=== PATIENT | male | born 1970 | race Caucasian/White ===

== ENCOUNTER 2017-05-27 13:43 | Emergency (ER) | payer OTHER ==
[2017-05-27 13:48] VITALS: BP 139/87; PULSE 90; TEMP 98; BMI 279.0
--- NOTE | 2017-05-27 14:40 | PDOC ---
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 Past History - Past Medical History Allergies/Adverse Reactions: Allergies Allergy/AdvReac Type Severity Reaction Status Date / Time No Known Allergies Allergy Verified 05/27/17 13:47 Home Medications: Ambulatory Orders Atorvastatin Ca [Lipitor] 10 mg PO HS 05/09/15 Pantoprazole Sodium [Protonix] 40 mg PO DAILY 05/09/15 Oxycodone HCl/Acetaminophen [Percocet 5-325 mg Tablet] 1 tab PO Q4H #20 tablet MDD 6 05/27/17 GI Disorders: Yes (GERD) - Suicide/Smoking/Psychosocial Hx Smoking History: Never smoked Have you smoked in the past 12 months: No Information on smoking cessation initiated: No Hx Alcohol Use: No Drug/Substance Use Hx: No Substance Use Type: None Review of Systems - Review of Systems Constitutional: No: Symptoms Reported Musculoskeletal: Yes: Joint Pain, Joint Swelling Integumentary: Yes: Bruising, Erythema (left second distal toe) Neurological: No: Symptoms reported Hematologic/Lymphatic: No: Symptoms Reported All Other Systems: Reviewed and Negative *Physical Exam - Vital Signs Last Vital Signs Temp Pulse Resp BP Pulse Ox 98.0 F 90 18 139/87 100 05/27/17 13:45 05/27/17 13:45 05/27/17 13:45 05/27/17 13:45 05/27/17 13:45 - Physical Exam General Appearance: Yes: Appropriately Dressed. No: Apparent Distress Extremity: positive: Swelling (distal left second digit), Erythema Integumentary: positive: Erythema, Swelling. negative: Ecchymosis, Bruising Neurologic: positive: Alert, Normal Mood/Affect ED Treatment Course - RADIOLOGY Radiology Studies Ordered: Category Date Time Status FOOT-LEFT [RAD] Stat Radiology 05/27/17 14:18 Taken Medical Decision Making - Medical Decision Making 05/27/17 16:13 A/P: Patient here for injury to distal left second toe. Patient sent for x-ray Nondisplaced fracture of the tuft of the distal second phalanx John tape applied and surgical shoe, patient to follow-up with podiatry, orthopedics and occupational medicine to be cleared to return to work Percocet for pain I discussed the physical exam findings, ancillary test results and final diagnoses with the patient. I answered all of the patient's questions. The patient was satisfied with the care received and felt comfortable with the discharge plan and treatment plan. The patient will call to arrange follow-up and will return to the Emergency Department with any new, persistent or worsening symptoms. *DC/Admit/Observation/Transfer Diagnosis at time of Disposition: Toe fracture Qualifiers: Encounter type: initial encounter Toe: unspecified toe Fracture type: closed Fracture alignment: nondisplaced Laterality: left Qualified Code(s): S92.912A - Unspecified fracture of left toe(s), initial encounter for closed fracture - Discharge Dispostion Disposition: HOME Condition at time of disposition: Good Admit: No - Prescriptions Prescriptions: Oxycodone HCl/Acetaminophen [Percocet 5-325 mg Tablet] 1 tab PO Q4H #20 tablet MDD 6 - Referrals Referrals: Frank Duvall MD [Primary Care Provider] - Issac Leger MD [Staff Physician] - - Patient Instructions Additional Instructions: 1. Please return to the emergency department with any redness, swelling, increased pain, or any other concerns. 2. Keep splint on. 3. Please follow up in the office of Dr. Leger within a week. 4. Ice and elevate when at rest. 6. Motrin for pain Must be cleared by occupational medicine in order to return to work
== END 2017-05-27 15:29 | disposition home or self-care (01) ==
LOC: JERFT 13:43
PROC: 2W3RX1Z Immobilization of Left Lower Leg using Splint (ICD-10-PCS; principal; 2017-05-27)
DX: R05 Cough (principal); S92.912A Unspecified fracture of left toe(s), initial encounter for closed fracture; W23.1XXA Caught, crushed, jammed, or pinched between stationary objects, initial encounter; Y93.89 Activity, other specified; Y92.9 Unspecified place or not applicable; Y99.0 Civilian activity done for income or pay
CPT/HCPCS: 73630-TC-LT; 99281-25

== ENCOUNTER 2024-05-27 13:55 | Day surgery (SDC) | payer BC, OTHER ==
[2024-05-27] MEDS: PANTOPRAZOLE SODIUM 40 MG VIAL IVPUSH ONE (15:34)
[2024-05-27] MEDS ORDERED: PANTOPRAZOLE SODIUM 40 MG VIAL ONE (15:34)
[2024-05-27 15:37] LABS: BASO % 0.7 % (0-2.0); EOS % 1.2 % (0-4.5); HEMATOCRIT 45.2 % (35.4-49); HEMOGLOBIN 15.2 GM/dL (11.7-16.9); LYMPH % 13.7 % (8-40); MCH 28.4 pg (25.7-33.7); MCHC 33.7 g/dl (32.0-35.9); MEAN CELL VOLUME 84.1 fl (80-96); MEAN PLT VOLUME 7.2 fl (7.5-11.1); MONO % 7.7 % (3.8-10.2); NEUT % 76.7 % (42.8-82.8); PLATELET COUNT 344 10^3/uL (134-434); RBC 5.37 M/mm3 (4.00-5.60); RDW 13.8 % (11.9-15.9); WHITE BLOOD COUNT 7.8 K/mm3 (4.0-10.0)
[2024-05-27 15:43] LABS: INR 1.03 (0.83-1.09); PROTHROMBIN TIME (PATIENT) 11.8 SEC (9.7-13.0)
[2024-05-27 16:04] LABS: BLOOD UREA NITROGEN 17.6 mg/dL (7-18); CALCIUM 9.6 mg/dL (8.5-10.1)
[2024-05-27 16:05] LABS: ALBUMIN 4.3 g/dl (3.4-5.0)
[2024-05-27 16:08] LABS: CREATININE 1.2 mg/dL (0.55-1.3)
[2024-05-27 16:10] LABS: BILIRUBIN,TOTAL 0.4 mg/dL (0.2-1); TOT PROT 8.2 g/dl (6.4-8.2)
[2024-05-27] MEDS ORDERED: ONDANSETRON 4 MG/2 ML VIAL IVPUSH PRN (16:42)
[2024-05-27 16:59] LABS: HIV INTERPRETATION NEGATIVE (NEGATIVE)
[2024-05-27 19:09] VITALS: BMI 31.0
[2024-05-27] MEDS ORDERED: PANTOPRAZOLE 40 MG TABLET PO SCH (22:00)
[2024-05-27 22:51] VITALS: RESP 18
[2024-05-27] MEDS: LACTATED RINGERS SOLUTION 1,000 ML IV SCH (23:16)
[2024-05-28 06:18] VITALS: TEMP 98.2
[2024-05-28] MEDS: PANTOPRAZOLE 40 MG TABLET PO SCH (10:05)
[2024-05-28 11:20] VITALS: BP 119/79; PULSE 86
== END 2024-05-28 12:04 | disposition home or self-care (01) ==
LOC: JER 13:55 → JASUSAT 15:10 → SUATTDRO 15:10 → J8W 18:21 → JASUSAT 05-28 12:04
PROVIDERS: ATTEND Student in an Organized Health Care Education/Training Program
PROC: 0DC58ZZ Extirpation of Matter from Esophagus, Via Natural or Artificial Opening Endoscopic (ICD-10-PCS; principal; 2024-05-27 15:00)
DX: T18.108A Unspecified foreign body in esophagus causing other injury, initial encounter (principal); W44.9XXA Unspecified foreign body entering into or through a natural orifice, initial encounter; Y93.9 Activity, unspecified; Y92.9 Unspecified place or not applicable; K22.2 Esophageal obstruction
CPT/HCPCS: 36415; 80053; 85025; 85610; 86803; 86850; 86900; 86901; 87389; 94760; 99285-25

== ENCOUNTER 2024-07-13 05:01 | Day surgery (SDC) | payer BC ==
[2024-07-12 12:56] VITALS: BMI 31.0
[2024-07-13 11:00] VITALS: TEMP 97.8
[2024-07-13 11:41] VITALS: BP 118/85; PULSE 75; RESP 18
== END 2024-07-13 12:01 | disposition home or self-care (01) ==
LOC: JASU-ENDO 05:01
PROVIDERS: ATTEND Internal Medicine Gastroenterology
PROC: 0DB28ZX Excision of Middle Esophagus, Via Natural or Artificial Opening Endoscopic, Diagnostic (ICD-10-PCS; 2024-07-13)
PROC: 0D758ZZ Dilation of Esophagus, Via Natural or Artificial Opening Endoscopic (ICD-10-PCS; 2024-07-13)
PROC: 0DB38ZX Excision of Lower Esophagus, Via Natural or Artificial Opening Endoscopic, Diagnostic (ICD-10-PCS; principal; 2024-07-13 08:30)
DX: K20.0 Eosinophilic esophagitis (principal)
CPT/HCPCS: 88305-TC

== ENCOUNTER 2024-08-17 04:42 | Day surgery (SDC) | payer BC ==
[2024-08-15 10:22] VITALS: BMI 31.4
[2024-08-17 10:25] VITALS: TEMP 98.2
[2024-08-17 11:12] VITALS: BP 115/78; PULSE 73; RESP 21
== END 2024-08-17 11:13 | disposition home or self-care (01) ==
LOC: JASU-ENDO 04:42
PROVIDERS: ATTEND Internal Medicine Gastroenterology
PROC: 0DB38ZX Excision of Lower Esophagus, Via Natural or Artificial Opening Endoscopic, Diagnostic (ICD-10-PCS; principal; 2024-08-17 10:00)
DX: K20.0 Eosinophilic esophagitis (principal)
CPT/HCPCS: 88305-TC